=== PATIENT | male | born 1945 | race Caucasian/White ===

== ENCOUNTER 2021-04-29 10:26 | Emergency (ER) | payer MEDICARE ==
[~2021-04-29] VITALS: Ht 180.3 cm; Wt 135.0 kg
[2021-04-29 11:51] LABS: BASOPHILS # (AUTO) 0.1 X10'3 (0-0.2); BASOPHILS % (AUTO) 0.9 % (0-1); EOSINOPHILS # (AUTO) 0.1 X10'3 (0-0.9); EOSINOPHILS % (AUTO) 1.7 % (0-6); HEMATOCRIT 41.5 % (42.0-52.0); HEMOGLOBIN 13.9 g/dl (14.0-17.9); LYMPHOCYTES # (AUTO) 1.4 X10'3 (1.1-4.8); LYMPHOCYTES % (AUTO) 20.1 % (21-51); MEAN CORPUSCULAR HEMOGLOBIN 29.4 PG (27.0-31.0); MEAN CORPUSCULAR HGB CONC 33.4 g/dL (33.0-36.5); MEAN CORPUSCULAR VOLUME 87.9 FL (78-98); MEAN PLATELET VOLUME 7.9 FL (7.4-10.4); MONOCYTES # (AUTO) 0.7 X10'3 (0-0.9); NEUTROPHILS # (AUTO) 4.6 X10'3 (1.8-7.7); NEUTROPHILS % (AUTO) 67.3 % (42-75); PLATELET COUNT 207 X10'3 (140-440); RED BLOOD COUNT 4.72 X10'6 (4.70-6.10); RED CELL DISTRIBUTION WIDTH 14.3 % (11.5-14.5); WHITE BLOOD COUNT 6.8 X10'3 (4.5-11.0)
[2021-04-29 12:12] LABS: ALANINE AMINOTRANSFERASE 14 U/L (12-78); ALBUMIN 3.5 G/DL (3.4-5.0); ALBUMIN/GLOBULIN RATIO 0.8 (1.1-1.5); ALKALINE PHOSPHATASE 98 IU/L (46-116); ANION GAP 9 (8-16); ASPARTATE AMINO TRANSFERASE 17 U/L (10-37); BILIRUBIN,TOTAL 0.4 MG/DL (0.1-1.0); BLOOD UREA NITROGEN 12 MG/DL (7-18); BUN/CREATININE RATIO 12.1 (5.4-32.0); CALCIUM 8.7 MG/DL (8.5-10.1); CHLORIDE 102 MMOL/L (99-107); CREATININE 0.99 MG/DL (0.60-1.10); GLUCOSE 108 MG/DL (70-104); POTASSIUM 3.9 MMOL/L (3.5-5.1); SODIUM 137 MMOL/L (135-145); TOTAL CARBON DIOXIDE 26.2 MMOL/L (24-32); TOTAL PROTEIN 7.7 G/DL (6.4-8.2); eGFR 74 ML/MIN
[2021-04-29] MEDS ORDERED: ALBU6.7H9 INH (12:18)
[2021-04-29] MEDS ORDERED: DEXA4TAB67 PO (12:18)
[2021-04-29] MEDS ORDERED: dexamethasone sod phosphate 10mg/ml inj PO STA (12:19)
[2021-04-29] MEDS ORDERED: LORazepam 1 MG tablet PO ONE (12:40)
--- NOTE | 2021-04-29 13:01 | NUR ---
Patient has been seen and treated by the provider. No ER nurse save for this triage nurse as available to help. Per Librado ok to disch with no additional Troponin needed as the first Trop was WNL. Patient was given a steroidal in rm 17 as an IM. In addition Ativan 1mg PO was given as patient complains of anxiety.
--- NOTE | 2021-04-29 13:04 | NUR ---
Patient was evaluated by Dr. Welch prior to discharge as patient believes he is having todal body edema. Per Dr. Welch this is not seen. Discharge will continue after patient calms following time for Ativan to kick in.
[2021-04-29 13:40] VITALS: BP 204/124
== END 2021-04-29 13:42 | disposition home or self-care (01) ==
LOC: ER 10:26
DX: U07.1 COVID-19 (principal); R06.02 Shortness of breath; R06.01 Orthopnea; I11.0 Hypertensive heart disease with heart failure; I50.9 Heart failure, unspecified; Z79.899 Other long term (current) drug therapy
CPT/HCPCS: 36415; 71045; 80053; 83880; 84484; 85025; 87635; 93005; 99285; C9803; J1100